=== PATIENT | female | born 1990 ===

== ENCOUNTER 2020-01-10 07:54 | Inpatient (IN) | payer BC, OTHER, SELFPAY ==
[2020-01-10] MEDS ORDERED: ceFAZolin 2 GM in Premix Bag 1 BAG IV ONE (08:15)
[2020-01-10] MEDS ORDERED: Sodium Chloride 0.9% 10 ML SDV IV PRN (08:15)
[2020-01-10] MEDS ORDERED: Sodium Chloride 0.9% 2.5 ML Syringe FLUSH PRN (08:15)
[2020-01-10] MEDS ORDERED: Citric Acid/Sodium Citrate Solution 30 ML Cup PO ONE (08:15)
[2020-01-10] MEDS ORDERED: Oxytocin/0.9 % Sodium Chloride 30 UNIT/500 ML BAG IV SCH (08:15)
[2020-01-10] MEDS ORDERED: Sodium Chloride 0.9% 10 ML Syringe FLUSH PRN (08:15)
--- NOTE | 2020-01-10 08:27 | PCM.PREANE ---
Preanesthetic Assessment - Anesthesia/Transfusion/Family Hx Anesthesia History: Prior Anesthesia Without Reaction (prior c/s x 2, and lap chapo) Other Type of Anesthesia Reaction Comment: Denies any known problems, had some panic when felt alone in recovery rm Family History of Anesthesia Reaction: No Transfusion History: No Prior Transfusion(s) - Review of Systems General: No Symptoms Pulmonary: No Symptoms Cardiovascular: No Symptoms 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: No Symptoms Neurological: No Symptoms Other: Reports: None - Physical Assessment NPO Status Date: 01/09/20 Height: 5 ft 6.14 in Weight: 123.831 kg ASA Class: 2 Mental Status: Alert & Oriented x3 Airway Class: Mallampati = 2 Dentition: Reports: Normal Dentition ROM/Head Extension: Full Lungs: Clear to Auscultation, Normal Respiratory Effort Cardiovascular: Regular Rate, Regular Rhythm - Allergies Allergies/Adverse Reactions: Allergies Allergy/AdvReac Type Severity Reaction Status Date / Time No Known Allergies Allergy Verified 01/03/20 13:25 - Anesthesia Plan Pre-Op Medication Ordered: None - Acknowledgements Anesthesia Type Planned: Spinal Pt an Appropriate Candidate for the Planned Anesthesia: Yes Alternatives and Risks of Anesthesia Discussed w Pt/Guardian: Yes Pt/Guardian Understands and Agrees with Anesthesia Plan: Yes Additional Comments: pmh: mo PLAN: spinal with intrathecal duramorph PreAnesthesia Questionnaire - Past Health History Medical/Surgical History: Denies Medical/Surgical History HEENT History: Reports: Other (See Below) Other HEENT History: wears glasses 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 History: Reports: GERD Other 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 History: 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: Musculoskeletal History: Reports: Back Pain, Chronic Neurological History: Reports: Other (See Below) Other Neuro History: states bulging discs in lower back- and "no space" between vertebrate Endocrine/Metabolic History: Reports: Obesity/BMI 30+ - Infectious Disease History Infectious Disease History: Reports: Chicken Pox - Past Surgical History Head Surgeries/Procedures: Reports: None GI Surgical History: Reports: Cholecystectomy Female Surgical History: Reports: Section Other Female Surgeries/Procedures: x2 - SUBSTANCE USE Smoking Status *Q: Former Smoker Tobacco Use Within Last Twelve Months: No Recreational Drug Use History: No - HOME MEDS Home Medications: Home Meds No122/Iron/Folic Acid [ Multi Tablet] 1 tab PO DAILY 01/03/20 [ History] - CURRENT (IN HOUSE) MEDS Current Meds: Current Medications Cefazolin Sodium/Dextrose 2 gm (/ Premix) 50 mls @ 100 mls/hr IV ONETIME ONE Stop: 01/10/20 08:44 Lactated Ringer's (Ringers, Lactated) 1,000 mls @ 500 mls/hr IV BOLUS VANDA Oxytocin/Sodium Chloride (Oxytocin 30 Unit/500 Ml-Ns) 30 unit in 500 mls @ 250 mls/hr IV TITRATE VANDA Sodium Chloride (Saline Flush) 10 ml FLUSH ASDIRECTED PRN PRN Reason: Keep Vein Open Sodium Chloride (Saline Flush) 2.5 ml FLUSH ASDIRECTED PRN PRN Reason: Keep Vein Open Sodium Chloride (Normal Saline) 10 ml IV ASDIRECTED PRN PRN Reason: IV Use Discontinued Medications Citric Acid/Sodium Citrate (Bicitra Solution) 30 ml PO ONETIME ONE Stop: 01/10/20 08:16
[2020-01-10] MEDS ORDERED: Acetaminophen/oxyCODONE 325-5 MG Tab PO PRN ×3 (08:28→11:05)
[2020-01-10] MEDS ORDERED: fentaNYL 100 MCG/2 ML SDV IVPUSH PRN (08:28)
[2020-01-10] MEDS ORDERED: Nalbuphine 10 MG/1 ML Vial IVPUSH PRN (08:28)
--- NOTE | 2020-01-10 08:42 | PCM.LDHP ---
L&D History of Present Illness - General Date of Service: 01/10/20 Admit Problem/Dx: Patient Status Order with Admit Dx/Problem 01/10/20 08:18 Patient Status [ADT] Routine Admission Diagnosis/Problem Admission Diagnosis/Problem Source of Information: Patient History Limitations: Reports: No Limitations - History of Present Illness Improves with: Reports: None Worsens with: Reports: None Associated Symptoms: Reports: N - Related Data Allergies/Adverse Reactions: Allergies Allergy/AdvReac Type Severity Reaction Status Date / Time No Known Allergies Allergy Verified 01/03/20 13:25 Home Medications: Home Meds No122/Iron/Folic Acid [ Multi Tablet] 1 tab PO DAILY 01/03/20 [ History] Past Medical History - Past Health History Medical/Surgical History: Denies Medical/Surgical History HEENT History: Reports: Other (See Below) Other HEENT History: wears glasses 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 History: Reports: GERD Other 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: Musculoskeletal History: Reports: Back Pain, Chronic Neurological History: Reports: Other (See Below) Other Neuro History: states bulging discs in lower back- and "no space" between vertebrate Endocrine/Metabolic History: Reports: Obesity/BMI 30+ - Infectious Disease History Infectious Disease History: Reports: Chicken Pox - Past Surgical History Head Surgeries/Procedures: Reports: None GI Surgical History: Reports: Cholecystectomy Female Surgical History: Reports: Section Other Female Surgeries/Procedures: x2 Social & Family History - Family History Family Medical History: Noncontributory - Tobacco Use Smoking Status *Q: Former Smoker Tobacco Use Comment: quit "several" years ago - Recreational Drug Use Recreational Drug Use: No Drug Use in Last 12 Months: No H&P Review of Systems - Review of Systems: Review Of Systems: See Below General: Reports: No Symptoms HEENT: Reports: No Symptoms Pulmonary: Reports: No Symptoms Cardiovascular: Reports: No Symptoms 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: Reports: No Symptoms Genitourinary: Reports: No Symptoms Musculoskeletal: Reports: No Symptoms Skin: Reports: No Symptoms Psychiatric: Reports: No Symptoms Neurological: Reports: No Symptoms Hematologic/Lymphatic: Reports: No Symptoms Immunologic: Reports: No Symptoms L&D Exam - Exam Exam: See Below - Vital Signs Weight: 123.831 kg - OB Specific Contraction Intensity: Mild Heart Tones: Present Presentation: Vertex - Rocha Score Rocha Score Cervix Position: Midposition Rocha Score Consistency: Medium Rocha Score Effacement: 31-50% Rocha Score Dilation: Closed Rocha Score 's Station: -3 Rocha Score Total: 3 - Exam General: Alert, Oriented HEENT: PERRLA, Conjunctiva Clear, EACs Clear, EOMI, Hearing Intact, Mucosa Moist & Zayante, Nares Patent, Normal Nasal Septum, Posterior Pharynx Clear, TMs Clear Neck: Supple, Trachea Midline Lungs: Clear to Auscultation, Normal Respiratory Effort Cardiovascular: Regular Rate, Regular Rhythm GI/Abdominal Exam: Normal Bowel Sounds, Soft, Non-Tender, No Organomegaly, No Distention, No Abnormal Bruit, No Mass, Pelvis Stable Rectal Exam: Normal Exam, Normal Rectal Tone Genitourinary: Normal external exam, Normal bimanual exam, Normal speculum exam Back Exam: Normal Inspection, Full Range of Motion Extremities: Normal Inspection, Normal Range of Motion, Non-Tender, No Pedal Edema, Normal Capillary Refill Skin: Warm, Dry, Intact Neurological: Cranial Nerves Intact, Reflexes Equal Bilateral Psychiatric: Alert, Normal Affect, Normal Mood Problem List Initiated/Reviewed/Updated: Yes Orders Last 24hrs: Active Orders 24 hr Category Date Time Status Patient Status [ADT] Routine ADT 01/10/20 08:18 Active Bradycardia-Neuroaxis Duramorp [RC] ROUTINE Care 01/10/20 08:27 Active Non Stress Test [RC] PER UNIT ROUTINE Care 01/10/20 08:18 Active Hypertension-Neuroaxis [employer] [RC] ROUTINE Care 01/10/20 08:27 Active Hypotension-Neuroaxis [employer] [RC] ROUTINE Care 01/10/20 08:27 Active Notify Provider Vital Signs [RC] PRN Care 01/10/20 08:19 Active Oxygen Therapy [RC] PER UNIT ROUTINE Care 01/10/20 08:28 Active Procedure Site Prep Instruct [RC] ASDIRECTED Care 01/10/20 08:18 Active Up ad Araceli [RC] ASDIRECTED Care 01/10/20 08:18 Active Verify Patient Consent Obtain [RC] ASDIRECTED Care 01/10/20 08:18 Active Vital Signs [RC] PER UNIT ROUTINE Care 01/10/20 08:18 Active Vital Signs [RC] Q1H Care 01/10/20 08:28 Active CBC W/O DIFF,HEMOGRAM [HEME] Routine Lab 01/10/20 08:18 Ordered RPR (SYPHILIS SERO) W/ RFLX [REF] Routine Lab 01/10/20 08:18 Ordered TYPE AND SCREEN [BBK] Routine Lab 01/10/20 08:18 Ordered Acetaminophen/oxyCODONE [Percocet 325-5 MG] Med 01/10/20 08:28 Active 1 tab PO ONETIME PRN Lactated Ringers [Ringers, Lactated] 1,000 ml Med 01/10/20 08:15 Active IV BOLUS Nalbuphine [Nubain] Med 01/10/20 08:28 Active 2.5 mg IVPUSH Q3H PRN Oxytocin/0.9 % Sodium Chloride [Oxytocin 30 Unit/500 ML Med 01/10/20 08:15 Active -NS] 30 unit in 500 ml IV TITRATE Sodium Chloride 0.9% [Normal Saline] Med 01/10/20 08:15 Active 10 ml IV ASDIRECTED PRN Sodium Chloride 0.9% [Saline Flush] Med 01/10/20 08:15 Active 10 ml FLUSH ASDIRECTED PRN Sodium Chloride 0.9% [Saline Flush] Med 01/10/20 08:15 Active 2.5 ml FLUSH ASDIRECTED PRN ceFAZolin [Ancef] 2 gm Med 01/10/20 08:15 Active Premix Bag 1 bag IV ONETIME fentaNYL [Sublimaze] Med 01/10/20 08:28 Active 50 mcg IVPUSH Q5M PRN AN Neuroaxis Duramorph Precaution Reflex [OM.PC] PER Oth 01/10/20 08:30 Ordered UNIT ROUTINE AN Neuroaxis Duramorph Precaution Reflex [OM.PC] PER Oth 01/11/20 08:30 Ordered UNIT ROUTINE Peripheral IV Insertion Adult [OM.PC] Routine Oth 01/10/20 08:18 Ordered Schedule Procedure [COMM] Per Unit Routine Oth 01/10/20 08:18 Ordered Resuscitation Status Routine Resus Stat 01/10/20 08:15 Ordered Medication Orders Fentanyl (Sublimaze) 50 mcg IVPUSH Q5M PRN PRN Reason: Pain (severe 7-10) Stop: 01/11/20 08:28 Cefazolin Sodium/Dextrose 2 gm (/ Premix) 50 mls @ 100 mls/hr IV ONETIME ONE Stop: 01/10/20 08:44 Lactated Ringer's (Ringers, Lactated) 1,000 mls @ 500 mls/hr IV BOLUS VANDA Oxytocin/Sodium Chloride (Oxytocin 30 Unit/500 Ml-Ns) 30 unit in 500 mls @ 250 mls/hr IV TITRATE VANDA Nalbuphine HCl (Nubain) 2.5 mg IVPUSH Q3H PRN PRN Reason: Pruritis Stop: 01/11/20 08:28 Oxycodone/Acetaminophen (Percocet 325-5 Mg) 1 tab PO ONETIME PRN PRN Reason: Pain (moderate 4-6) Sodium Chloride (Saline Flush) 10 ml FLUSH ASDIRECTED PRN PRN Reason: Keep Vein Open Sodium Chloride (Saline Flush) 2.5 ml FLUSH ASDIRECTED PRN PRN Reason: Keep Vein Open Sodium Chloride (Normal Saline) 10 ml IV ASDIRECTED PRN PRN Reason: IV Use Assessment/Plan Comment:: IUP 39+wks admitted for elective repeat C/section.
[2020-01-10] MEDS: Lactated Ringers 1,000 ML IV SCH ×2 (08:47→09:28)
[2020-01-10] MEDS ORDERED: Octyl 2-Cyanoacrylate 1 Tube ONE (09:19)
[2020-01-10] MEDS ORDERED: Sodium Chloride 0.9% 20 ML ONE (09:28)
[2020-01-10] MEDS ORDERED: Morphine PF 10 MG/10 ML SDV ONE (09:28)
[2020-01-10] MEDS ORDERED: ceFAZolin 1 GM Vial ONE (09:28)
[2020-01-10] MEDS ORDERED: Ondansetron 4 MG/2 ML SDV ONE (09:29)
[2020-01-10] MEDS ORDERED: Ketorolac 30 MG/ML SDV ONE (09:29)
[2020-01-10] MEDS ORDERED: Oxytocin 10 Units/1 ML SDV ONE (09:29)
[2020-01-10] MEDS ORDERED: diphenhydrAMINE 50 MG/ML SDV IVPUSH PRN (11:05)
[2020-01-10] MEDS ORDERED: Ondansetron 4 MG/2 ML SDV IVPUSH PRN (11:05)
[2020-01-10] MEDS ORDERED: Ibuprofen 800 MG Tab PO PRN (11:05)
[2020-01-10] MEDS ORDERED: Bisacodyl 10 MG Supp RECTAL PRN (11:05)
[2020-01-10] MEDS ORDERED: Tranexamic Acid 1,000 MG in Sodium Chloride 0.9% 100 ML IV PRN (11:05)
[2020-01-10] MEDS ORDERED: Methylergonovine 0.2 MG/1 ML Amp IM PRN (11:05)
[2020-01-10] MEDS ORDERED: Lanolin 100% Cream 7 GM Tube TOP PRN (11:05)
[2020-01-10] MEDS ORDERED: Oxytocin 10 Units/1 ML SDV IM PRN (11:05)
[2020-01-10] MEDS ORDERED: Misoprostol 200 MCG Tab RECTAL PRN (11:05)
--- NOTE | 2020-01-10 11:08 | PCM.OPNOTE ---
- General Post-Op/Procedure Note Date of Surgery/Procedure: 01/10/20 Operative Procedure(s): Repeat C/section Pre Op Diagnosis: IUP 39+wks previous C/section. Post-Op Diagnosis: Same Anesthesia Technique: Spinal Primary Surgeon: Storm Chinchilla Statistical Clerk Advertising: Evi Grady EBMicky in mLs: 700 Complications: None Condition: Good
[2020-01-10] MEDS ORDERED: Lactated Ringers 1,000 ML IV SCH (11:15)
--- NOTE | 2020-01-10 12:09 | PCM.POSTAN ---
POST ANESTHESIA ASSESSMENT - MENTAL STATUS Mental Status: Alert - RESPIRATORY Respiratory Status: Respiratory Rate WNL - CARDIOVASCULAR CV Status: Pulse Rate WNL - GASTROINTESTINAL GI Status: No Symptoms - POST OP HYDRATION Hydration Status: Adequate & Stable
[2020-01-10] MEDS: Ketorolac 30 MG/ML SDV IVPUSH SCH ×3 (12:23→23:07)
--- NOTE | 2020-01-10 15:20 | OR ---
SURGEON: Storm Chinchilla MD DATE OF PROCEDURE: 01/10/2020 PREOPERATIVE DIAGNOSES: Intrauterine at 39 weeks plus, previous section times multiple, and the patient is admitted for elective repeat section. POSTOPERATIVE DIAGNOSES: Intrauterine at 39 weeks plus, previous section times multiple, and the patient is admitted for elective repeat section. OPERATION PERFORMED: Repeat low transverse section. PRIMARY SURGEON: Storm Chinchilla MD CLINICAL LABORATORY ASSISTANT: Evi Grady, certified nurse joggle press operator. ANESTHESIA: Spinal, Rickie Harper and Dr. Terry. ESTIMATED BLOOD LOSS: 700 mL. COMPLICATIONS: None. FINDINGS: Male fetus. score reported to be 8 and 9. Normal uterus, tubes, and ovaries. INDICATIONS FOR SURGERY: The patient had multiple previous sections. She is admitted for elective repeat section. PROCEDURE IN DETAIL: The patient brought to the OR, properly identified, and after adequate level of spinal anesthesia with a Riggins catheter in the bladder, the patient was prepped and draped in sterile fashion as usual. Low transverse Pfannenstiel skin incision through the old scar was done. Rachel fascia and rectus fascia were opened in direction of the incision. The two recti muscles were . There were dense adhesions; however, I was able to create a path to the lower uterine segment to accommodate doing the section. Then, low transverse uterine incision was done and extended manually with the hand. Fetus was in a vertex position, delivered with the aid of the vacuum without any problem, cried immediately. score was reported to be 8 and 9. The weight is not available. The placenta delivered spontaneous, complete, and intact. Then, repair of the lower uterine segment was done with 2-0 Vicryl continuous interlocking in 2 layers. The peritoneal cavity closed with 2-0 Vicryl continuous and then the rectus fascia was closed with #1 PDS double strand continuous. The Rachel fascia was closed with 3-0 Vicryl continuous and the skin closed with 3-0 on a Warner needle in a subcuticular fashion. A PRASHANT dressing was applied for suctioning because of high BMI of the patient. The patient tolerated the procedure well, went to recovery room in stable general condition. YOSHI / MAGGIL /[id number]
[2020-01-10] MEDS: Docusate Sodium 100 MG Cap PO SCH (21:10)
[2020-01-11] MEDS: Ketorolac 30 MG/ML SDV IVPUSH SCH ×2 (05:19→11:26)
--- NOTE | 2020-01-11 07:33 | PCM48HPAN ---
Post Anesthesia Note - EVALUATION WITHIN 48HRS OF ANESTHETIC Vital Signs in Normal Range: Yes Patient Participated in Evaluation: Yes Respiratory Function Stable: Yes Airway Patent: Yes Cardiovascular Function Stable: Yes Hydration Status Stable: Yes Pain Control Satisfactory: Yes Nausea and Vomiting Control Satisfactory: Yes Mental Status Recovered: Yes Vital Signs: Last Vital Signs Temp 36.2 C 01/11/20 04:00 Pulse 84 01/11/20 07:00 Resp 17 01/11/20 07:00 BP 107/54 L 01/11/20 04:00 Pulse Ox 99 01/11/20 07:00
[2020-01-11 07:44] VITALS: BP 102/59
--- NOTE | 2020-01-11 07:58 | PCM.PNPP ---
- General Info Date of Service: 01/11/20 Admission Dx/Problem (Free Text): Patient Status Order with Admit Dx/Problem 01/10/20 08:18 Patient Status [ADT] Routine Admission Diagnosis/Problem Admission Diagnosis/Problem Functional Status: Reports: Pain Controlled, Tolerating Diet, Ambulating, Urinating - Review of Systems General: Reports: No Symptoms HEENT: Reports: No Symptoms Pulmonary: Reports: No Symptoms Cardiovascular: Reports: No Symptoms 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: Reports: No Symptoms Genitourinary: Reports: No Symptoms Musculoskeletal: Reports: No Symptoms Skin: Reports: No Symptoms Neurological: Reports: No Symptoms Psychiatric: Reports: No Symptoms - General Info Date of Service: 01/11/20 - Patient Data Vital Signs - Most Recent: Last Vital Signs Temp 97.6 F 01/11/20 07:39 Pulse 88 01/11/20 07:39 Resp 16 01/11/20 07:39 BP 102/59 L 01/11/20 07:39 Pulse Ox 98 01/11/20 07:39 Weight - Most Recent: 273 lb I&O - Last 24 Hours: Intake & Output 01/10/20 01/11/20 01/11/20 22:59 06:59 14:59 Intake Total 700 Output Total 700 1100 Balance 0 -1100 Lab Results - Last 24 Hours: Laboratory Results - last 24 hr 01/10/20 01/10/20 01/11/20 Range/Units 08:39 08:39 05:55 WBC 7.74 (4.0-11.0) K/uL RBC 4.49 (4.30-5.90) M/uL Hgb 11.7 L 10.8 L (12.0-16.0) g/dL Hct 36.4 34.0 L (36.0-46.0) % MCV 81.1 (80.0-98.0) fL MCH 26.1 L (27.0-32.0) pg MCHC 32.1 (31.0-37.0) g/dL RDW Std Deviation 39.3 (28.0-62.0) fl RDW Coeff of Peter 13 (11.0-15.0) % Plt Count 312 (150-400) K/uL MPV 11.10 (7.40-12.00) fL Nucleated RBC % 0.0 /100WBC Nucleated RBCs # 0 K/uL Blood Type B POSITIVE Antibody Screen NEGATIVE Med Orders - Current: Current Medications Bisacodyl (Dulcolax) 10 mg RECTAL ONETIME PRN PRN Reason: Constipation Diphenhydramine HCl (Benadryl) 25 mg IVPUSH Q6H PRN PRN Reason: Itching or Nausea Last Admin: 01/10/20 20:36 Dose: 25 mg Docusate Sodium (Colace) 100 mg PO BID [facility] Last Admin: 01/10/20 21:10 Dose: 100 mg Emollient Ointment (Lansinoh Hpa) 0 gm TOP ASDIRECTED PRN PRN Reason: Sore Nipples Last Admin: 01/10/20 13:29 Dose: 7 gm Fentanyl (Sublimaze) 50 mcg IVPUSH Q5M PRN PRN Reason: Pain (severe 7-10) Stop: 01/11/20 08:28 Lactated Ringer's (Ringers, Lactated) 1,000 mls @ 500 mls/hr IV BOLUS [facility] Last Admin: 01/10/20 09:28 Dose: 500 mls/hr Oxytocin/Sodium Chloride (Oxytocin 30 Unit/500 Ml-Ns) 30 unit in 500 mls @ 250 mls/hr IV TITRATE [facility] Tranexamic Acid 1,000 mg/ (Sodium Chloride) 110 mls @ 660 mls/hr IV ONETIME PRN PRN Reason: Bleeding Lactated Ringer's (Ringers, Lactated) 1,000 mls @ 125 mls/hr IV ASDIRECTED [facility] Last Admin: 01/10/20 12:21 Dose: 125 mls/hr Ibuprofen (Motrin) 800 mg PO Q8H PRN PRN Reason: mild pain or fever Ketorolac Tromethamine (Toradol) 30 mg IVPUSH Q6H [facility] Stop: 01/11/20 11:16 Last Admin: 01/11/20 05:19 Dose: 30 mg Methylergonovine Maleate (Methergine) 0.2 mg IM ONETIME PRN PRN Reason: Excessive Vaginal Bleeding Misoprostol (Cytotec) 1,000 mcg RECTAL ONETIME PRN PRN Reason: excessive bleeding Nalbuphine HCl (Nubain) 2.5 mg IVPUSH Q3H PRN PRN Reason: Pruritis Stop: 01/11/20 08:28 Last Admin: 01/10/20 13:27 Dose: 2.5 mg Ondansetron HCl (Zofran) 4 mg IVPUSH Q4H PRN PRN Reason: Nausea/Vomiting Oxycodone/Acetaminophen (Percocet 325-5 Mg) 1 tab PO ONETIME PRN PRN Reason: Pain (moderate 4-6) Oxycodone/Acetaminophen (Percocet 325-5 Mg) 1 tab PO Q4H PRN PRN Reason: Pain (moderate 4-6) Oxycodone/Acetaminophen (Percocet 325-5 Mg) 2 tab PO Q4H PRN PRN Reason: Pain (moderate 4-6) Oxytocin (Pitocin) 10 unit IM ASDIRECTED PRN PRN Reason: Excessive Vaginal Bleeding Sodium Chloride (Saline Flush) 10 ml FLUSH ASDIRECTED PRN PRN Reason: Keep Vein Open Sodium Chloride (Saline Flush) 2.5 ml FLUSH ASDIRECTED PRN PRN Reason: Keep Vein Open Sodium Chloride (Normal Saline) 10 ml IV ASDIRECTED PRN PRN Reason: IV Use Discontinued Medications Cefazolin Sodium (Ancef) Confirm Administered Dose 2 gm .ROUTE .STK-MED ONE Stop: 01/10/20 09:29 Citric Acid/Sodium Citrate (Bicitra Solution) 30 ml PO ONETIME ONE Stop: 01/10/20 08:16 Last Admin: 01/10/20 09:53 Dose: 30 ml Cefazolin Sodium/Dextrose 2 gm (/ Premix) 50 mls @ 100 mls/hr IV ONETIME ONE Stop: 01/10/20 08:44 Last Admin: 01/10/20 12:22 Dose: Not Given Sodium Chloride (Normal Saline) Confirm Administered Dose 20 mls @ as directed .ROUTE .STK-MED ONE Stop: 01/10/20 09:29 Ketorolac Tromethamine (Toradol) Confirm Administered Dose 30 mg .ROUTE .STK- MED ONE Stop: 01/10/20 09:30 Morphine Sulfate (Duramorph Pf) Confirm Administered Dose 10 mg .ROUTE .STK-MED ONE Stop: 01/10/20 09:29 Octyl Cyanoacrylate (Dermabond Advance) Confirm Administered Dose 1 applic .ROUTE .STK-MED ONE Stop: 01/10/20 09:20 Last Admin: 01/10/20 13:10 Dose: Not Given Ondansetron HCl (Zofran) Confirm Administered Dose 4 mg .ROUTE .STK-MED ONE Stop: 01/10/20 09:30 Oxytocin (Pitocin) Confirm Administered Dose 20 unit .ROUTE .STK-MED ONE Stop: 01/10/20 09:30 - Interaction Infant Disposition, : [place] in Room with Family Infant Interaction: Holding Infant Feeding: Breastfed ; Nursed Well Support Person: - Recovery Exam Fundal Tone: Firm Fundal Level: 2 Fingerbreadths Below Umbilicus Fundal Placement: Midline Lochia Amount: Scant Lochia Color: Rubra/Red Perineum Description: Intact, Minimal Bruising/Swelling Bladder Status: Indwelling Catheter in Place Urinary Elimination: Indwelling Catheter - Exam General: Alert, Oriented, Cooperative, No Acute Distress Lungs: Normal Respiratory Effort GI/Abdominal Exam: Soft, Non-Tender Extremities: Normal Inspection, Normal Range of Motion, Non-Tender, Normal Capillary Refill Skin: Warm, Dry, Intact Wound/Incisions: Dressing Dry and Intact Neurological: No New Focal Deficit, Normal Gait, Normal Speech, Normal Tone, Strength Equal Bilateral, Sensation Intact - Problem List & Annotations (1) section SNOMED Code(s): 56128068 - section Status: Acute Priority: High Current Visit: Yes - Problem List Review Problem List Initiated/Reviewed/Updated: Yes - Plan Plan:: IUP 39+wks admitted for elective repeat C/section. PP Day 1 A: Ambulating, urinating, and well. Dressing dry and intact. No concerns/questions at this time. P: Routine plan of care.
--- NOTE | 2020-01-11 08:48 | PCM.DCSUM1 ---
Discharge Summary - Hospital Course Free Text/Narrative:: Discharge home with infant. Follow up for post op 1 week and 6 weeks. Diagnosis: Stroke: No Modified [place] Scale: No Symptoms at All Modified [place] Scale Score: 0 - Discharge Data Discharge Date: 01/11/20 Discharge Disposition: Home, Self-Care 01 Condition: Good - Referral to Home Health Primary Care Physician: PCP None - Discharge Diagnosis/Problem(s) (1) section SNOMED Code(s): 71710082 - section Status: Acute Priority: High Current Visit: Yes - Patient Summary/Data Operative Procedure(s) Performed: Repeat C/section - Patient Instructions Diet: Usual Diet as Tolerated Activity: As Tolerated, No Strenuous Activities, Rest and Relax Today Driving: Do Not Drive Showering/Bathing: May Shower Notify Provider of: Fever, Increased Pain, Swelling and Redness, Drainage, Nausea and/or Vomiting Other/Special Instructions: Discharge home with infant. Follow up for post op 1 week and 6 weeks. - Discharge Plan *PRESCRIPTION DRUG MONITORING PROGRAM REVIEWED*: Not Applicable *COPY OF PRESCRIPTION DRUG MONITORING REPORT IN PATIENT JESUS: Not Applicable Prescriptions/Med Rec: Acetaminophen/oxyCODONE [Percocet 325-5 MG] 1 - 2 tab PO Q6HR PRN #30 tablet PRN Reason: Pain (Moderate 4-6) Ibuprofen [Motrin] 800 mg PO Q8H PRN #90 tablet PRN Reason: mild pain or fever Home Medications: Home Meds No122/Iron/Folic Acid [ Multi Tablet] 1 tab PO DAILY 01/03/20 [ History] Acetaminophen/oxyCODONE [Percocet 325-5 MG] 1 - 2 tab PO Q6HR PRN #30 tablet [Rx] Ibuprofen [Motrin] 800 mg PO Q8H PRN #90 tablet 01/11/20 [Rx] Oxygen Therapy Mode: Room Air Referrals: [facility] [Outside] Storm Chinchilla MD [Physician] - (1 week- January 15@3:30pm w/ Dr. Chinchilla 6 week- February 21@1:30pm w/ Dr. Chinchilla ) - Discharge Summary/Plan Comment DC Time >30 min.: Yes - General Info Date of Service: 01/11/20 Admission Dx/Problem (Free Text: Patient Status Order with Admit Dx/Problem 01/10/20 08:18 Patient Status [ADT] Routine Admission Diagnosis/Problem Admission Diagnosis/Problem Functional Status: Reports: Pain Controlled - Review of Systems General: Reports: No Symptoms HEENT: Reports: No Symptoms Pulmonary: Reports: No Symptoms Cardiovascular: Reports: No Symptoms 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: Reports: No Symptoms Genitourinary: Reports: No Symptoms Musculoskeletal: Reports: No Symptoms Skin: Reports: No Symptoms Neurological: Reports: No Symptoms Psychiatric: Reports: No Symptoms - Patient Data Vitals - Most Recent: Last Vital Signs Temp 36.4 C 01/11/20 07:39 Pulse 88 01/11/20 07:39 Resp 16 01/11/20 07:39 BP 102/59 L 01/11/20 07:39 Pulse Ox 98 01/11/20 07:39 Weight - Most Recent: 123.831 kg I&O - Last 24 hours: Intake & Output 01/10/20 01/11/20 01/11/20 22:59 06:59 14:59 Intake Total 700 Output Total 700 1100 Balance 0 -1100 Lab Results - Last 24 hrs: Laboratory Results - last 24 hr 01/10/20 01/10/20 01/11/20 Range/Units 08:39 08:39 05:55 WBC 7.74 (4.0-11.0) K/uL RBC 4.49 (4.30-5.90) M/uL Hgb 11.7 L 10.8 L (12.0-16.0) g/dL Hct 36.4 34.0 L (36.0-46.0) % MCV 81.1 (80.0-98.0) fL MCH 26.1 L (27.0-32.0) pg MCHC 32.1 (31.0-37.0) g/dL RDW Std Deviation 39.3 (28.0-62.0) fl RDW Coeff of Peter 13 (11.0-15.0) % Plt Count 312 (150-400) K/uL MPV 11.10 (7.40-12.00) fL Nucleated RBC % 0.0 /100WBC Nucleated RBCs # 0 K/uL Blood Type B POSITIVE Antibody Screen NEGATIVE Med Orders - Current: Current Medications Bisacodyl (Dulcolax) 10 mg RECTAL ONETIME PRN PRN Reason: Constipation Diphenhydramine HCl (Benadryl) 25 mg IVPUSH Q6H PRN PRN Reason: Itching or Nausea Last Admin: 01/10/20 20:36 Dose: 25 mg Docusate Sodium (Colace) 100 mg PO BID [facility] Last Admin: 01/10/20 21:10 Dose: 100 mg Emollient Ointment (Lansinoh Hpa) 0 gm TOP ASDIRECTED PRN PRN Reason: Sore Nipples Last Admin: 01/10/20 13:29 Dose: 7 gm Lactated Ringer's (Ringers, Lactated) 1,000 mls @ 500 mls/hr IV BOLUS [facility] Last Admin: 01/10/20 09:28 Dose: 500 mls/hr Oxytocin/Sodium Chloride (Oxytocin 30 Unit/500 Ml-Ns) 30 unit in 500 mls @ 250 mls/hr IV TITRATE [facility] Tranexamic Acid 1,000 mg/ (Sodium Chloride) 110 mls @ 660 mls/hr IV ONETIME PRN PRN Reason: Bleeding Lactated Ringer's (Ringers, Lactated) 1,000 mls @ 125 mls/hr IV ASDIRECTED [facility] Last Admin: 01/10/20 12:21 Dose: 125 mls/hr Ibuprofen (Motrin) 800 mg PO Q8H PRN PRN Reason: mild pain or fever Ketorolac Tromethamine (Toradol) 30 mg IVPUSH Q6H [facility] Stop: 01/11/20 11:16 Last Admin: 01/11/20 05:19 Dose: 30 mg Methylergonovine Maleate (Methergine) 0.2 mg IM ONETIME PRN PRN Reason: Excessive Vaginal Bleeding Misoprostol (Cytotec) 1,000 mcg RECTAL ONETIME PRN PRN Reason: excessive bleeding Ondansetron HCl (Zofran) 4 mg IVPUSH Q4H PRN PRN Reason: Nausea/Vomiting Oxycodone/Acetaminophen (Percocet 325-5 Mg) 1 tab PO ONETIME PRN PRN Reason: Pain (moderate 4-6) Oxycodone/Acetaminophen (Percocet 325-5 Mg) 1 tab PO Q4H PRN PRN Reason: Pain (moderate 4-6) Oxycodone/Acetaminophen (Percocet 325-5 Mg) 2 tab PO Q4H PRN PRN Reason: Pain (moderate 4-6) Oxytocin (Pitocin) 10 unit IM ASDIRECTED PRN PRN Reason: Excessive Vaginal Bleeding Sodium Chloride (Saline Flush) 10 ml FLUSH ASDIRECTED PRN PRN Reason: Keep Vein Open Sodium Chloride (Saline Flush) 2.5 ml FLUSH ASDIRECTED PRN PRN Reason: Keep Vein Open Sodium Chloride (Normal Saline) 10 ml IV ASDIRECTED PRN PRN Reason: IV Use Discontinued Medications Cefazolin Sodium (Ancef) Confirm Administered Dose 2 gm .ROUTE .STK-MED ONE Stop: 01/10/20 09:29 Citric Acid/Sodium Citrate (Bicitra Solution) 30 ml PO ONETIME ONE Stop: 01/10/20 08:16 Last Admin: 01/10/20 09:53 Dose: 30 ml Fentanyl (Sublimaze) 50 mcg IVPUSH Q5M PRN PRN Reason: Pain (severe 7-10) Stop: 01/11/20 08:28 Cefazolin Sodium/Dextrose 2 gm (/ Premix) 50 mls @ 100 mls/hr IV ONETIME ONE Stop: 01/10/20 08:44 Last Admin: 01/10/20 12:22 Dose: Not Given Sodium Chloride (Normal Saline) Confirm Administered Dose 20 mls @ as directed .ROUTE .STK-MED ONE Stop: 01/10/20 09:29 Ketorolac Tromethamine (Toradol) Confirm Administered Dose 30 mg .ROUTE .STK- MED ONE Stop: 01/10/20 09:30 Morphine Sulfate (Duramorph Pf) Confirm Administered Dose 10 mg .ROUTE .STK-MED ONE Stop: 01/10/20 09:29 Nalbuphine HCl (Nubain) 2.5 mg IVPUSH Q3H PRN PRN Reason: Pruritis Stop: 01/11/20 08:28 Last Admin: 01/10/20 13:27 Dose: 2.5 mg Octyl Cyanoacrylate (Dermabond Advance) Confirm Administered Dose 1 applic .ROUTE .STK-MED ONE Stop: 01/10/20 09:20 Last Admin: 01/10/20 13:10 Dose: Not Given Ondansetron HCl (Zofran) Confirm Administered Dose 4 mg .ROUTE .STK-MED ONE Stop: 01/10/20 09:30 Oxytocin (Pitocin) Confirm Administered Dose 20 unit .ROUTE .[employer] ONE Stop: 01/10/20 09:30 - Exam General: Reports: Alert, Oriented, Cooperative, No Acute Distress Lungs: Reports: Normal Respiratory Effort GI/Abdominal Exam: Soft, Non-Tender (Female) Exam: Deferred, Vaginal Bleeding Rectal (Female) Exam: Deferred Back Exam: Reports: Normal Inspection, Full Range of Motion Extremities: Normal Inspection, Normal Range of Motion, Non-Tender, No Pedal Edema Skin: Reports: Warm, Dry, Intact Wound/Incisions: Reports: Healing Well, No Drainage. Denies: Erythema Neurological: Reports: No New Focal Deficit, Normal Gait, Normal Speech, Normal Tone, Strength Equal Bilateral, Sensation Intact Psy/Mental Status: Reports: Alert, Normal Affect, Normal Mood
[2020-01-11] MEDS: Docusate Sodium 100 MG Cap PO SCH (09:02)
[2020-01-11 13:04] VITALS: PULSE 86
== END 2020-01-11 15:29 | disposition home or self-care (01) | DRG 788 ==
LOC: MW.OB 07:54
PROVIDERS: ADMIT Obstetrics & Gynecology; ATTEND Obstetrics & Gynecology
PROC: 10D00Z1 Extraction of Products of Conception, Low, Open Approach (ICD-10-PCS; principal; 2020-01-10)
DX: O34.211 Maternal care for low transverse scar from previous cesarean delivery (principal); Z37.0 Single live birth; Z3A.39 39 weeks gestation of pregnancy; O99.214 Obesity complicating childbirth; E66.9 Obesity, unspecified; Z87.891 Personal history of nicotine dependence
CPT/HCPCS: 36415; 59025; 85014; 85018; 85027; 86592; 86593; 86850; 86900; 86901; A9270-GY; J0690; J1200; J1885; J2270; J2300; J2405; J2590; J7120